=== PATIENT | female | born 1975 | race Caucasian/White ===

== ENCOUNTER 2020-02-07 03:37 | Outpatient (RCR) | payer MEDICAID, SELFPAY | END 2020-02-15 23:59 | disposition home or self-care (01) | LOC: PT 03:37 | DX: R69 Illness, unspecified (principal) ==

== ENCOUNTER 2021-12-20 18:32 | Outpatient (REF) | payer MEDICAID, SELFPAY ==
[2021-12-22 11:25] LABS: COVID-19 RT-PCR UVMMC Result Negative (Negative)
== END 2021-12-20 18:33 | disposition home or self-care (01) ==
LOC: LBN 18:32
PROVIDERS: Visit Provider Physician Assistant Medical
DX: J02.9 Acute pharyngitis, unspecified (principal); Z20.822 Contact with and (suspected) exposure to COVID-19
CPT/HCPCS: U0003; 87070